=== PATIENT | female | born 1975 | race Two or more races ===

== ENCOUNTER 2020-05-19 19:34 | Inpatient (IN) | payer MEDICAID, OTHER ==
[~2020-05-19] VITALS: Ht 167.6 cm; Wt 99.9 kg
[2020-05-19] MEDS ORDERED: DexAMETHasone SOD PHOS 10MG/1ML VIAL INJ IV ONE (21:45)
[2020-05-19] MEDS ORDERED: DOXYCYCLINE 100MG/250ML 250 ML IV ONE (21:45)
[2020-05-19] MEDS ORDERED: SODIUM CHLORIDE 0.9% 1,000 ML IV ONE (21:45)
[2020-05-19] MEDS ORDERED: ACETAMINOPHEN 500 MG TAB PO ONE (22:45)
[2020-05-19 22:50] LABS: Basophils # (auto) 0 10 ^3/uL (0-0.2); Basophils % (auto) 0.3 % (0.0-2.0); Eosinophils # (auto) 0 10 ^3/uL (0-0.8); Eosinophils % (auto) 0.1 % (0.0-7.0); Hematocrit 43.1 % (36.0-46.0); Hemoglobin 14.3 g/dL (12.2-16.2); Lymphocytes # (auto) 1.5 10 ^3/uL (0.4-5.4); Lymphocytes % (auto) 17.7 % (10.0-50.0); Mean Corpuscular Hemoglobin 29.9 pg (28.0-32.0); Mean Corpuscular Hgb Conc. 33.2 g/dL (32.0-36.0); Mean Corpuscular Volume 90.1 fL (80.0-100.0); Monocytes # (auto) 0.7 10 ^3/uL (0-1.3); Monocytes % (auto) 8.7 % (0.0-12.0); Neutrophils # (auto) 6.2 10 ^3/uL (1.6-8.6); Neutrophils % (auto) 73.2 % (37.0-80.0); Platelet Count (auto) 219 10^3/uL (140-450); Red Blood Cells 4.78 10^6/uL (4.0-5.20); Red Cell Distribution Width 14.7 % (11.8-14.3); White Blood Cell 8.5 10^3/uL (4.4-10.8)
[2020-05-19 23:07] LABS: Albumin 3.2 g/dL (3.4-5.0); Calcium 8.6 mg/dL (8.5-10.1); Potassium 3.9 mmol/L (3.5-5.1)
[2020-05-19 23:10] LABS: Bilirubin, Total 0.6 mg/dL (0.2-1.0); Total Protein 7.8 g/dL (6.4-8.2)
[2020-05-19] MEDS ORDERED: SODIUM CHLORIDE 0.9% 1,000 ML IV SCH (23:24)
[2020-05-19] MEDS ORDERED: ACETAMINOPHEN 325 MG TAB PO PRN (23:30)
[2020-05-19] MEDS ORDERED: LORazepam 0.5 MG TAB PO PRN (23:30)
[2020-05-19] MEDS ORDERED: ONDANSETRON HCL 4 MG/2 ML VIAL IV PRN (23:30)
[2020-05-19] MEDS ORDERED: DOCUSATE SOD 100 MG CAP PO PRN (23:30)
[2020-05-20 00:02] LABS: Urine Bacteria FEW /hpf (None Seen); Urine Blood Negative /uL (Negative); Urine Mucus FEW (None Seen); Urine Specific Gravity 1.022 (1.001-1.035); Urine WBC 13 /hpf (0 - 5)
[2020-05-20] MEDS ORDERED: ENOXAPARIN SOD 40 MG/0.4 ML SYRINGE SC SCH (10:00)
[2020-05-20] MEDS: ZINC SULFATE 220mg CAP or TAB PO SCH (10:47)
[2020-05-20] MEDS: DOXYCYCLINE 100 MG TAB/CAP PO SCH ×2 (10:48→22:34)
[2020-05-20] MEDS: ASCORBIC ACID 1,000 MG TAB PO SCH (10:48)
[2020-05-20] MEDS: ALBUTEROL SULF HFA 90MCG INH 200DOSE IN SCH (13:00)
[2020-05-20 14:55] LABS: Basophils # (auto) 0 10 ^3/uL (0-0.2); Basophils % (auto) 0.1 % (0.0-2.0); Eosinophils # (auto) 0 10 ^3/uL (0-0.8); Hematocrit 41.2 % (36.0-46.0); Hemoglobin 13.4 g/dL (12.2-16.2); Lymphocytes # (auto) 1.2 10 ^3/uL (0.4-5.4); Mean Corpuscular Hemoglobin 29.5 pg (28.0-32.0); Mean Corpuscular Hgb Conc. 32.6 g/dL (32.0-36.0); Mean Corpuscular Volume 90.4 fL (80.0-100.0); Monocytes # (auto) 0.7 10 ^3/uL (0-1.3); Monocytes % (auto) 12.3 % (0.0-12.0); Neutrophils # (auto) 3.5 10 ^3/uL (1.6-8.6); Neutrophils % (auto) 64.6 % (37.0-80.0); Platelet Count (auto) 202 10^3/uL (140-450); Red Blood Cells 4.56 10^6/uL (4.0-5.20); Red Cell Distribution Width 14.8 % (11.8-14.3); White Blood Cell 5.4 10^3/uL (4.4-10.8)
--- NOTE | 2020-05-20 14:55 | NUR ---
Telemetry admit from ER YU MALHOTRA admitted to Telemetry. NO SBAR received. Patient oriented to JULIEN GRANADOS RN primary RN, unit, room, bed, and unit policies regarding patient care and visiting hours. Patient now on continuous telemetry monitoring, tele box # 3 and telemetry reading on arrival to unit is SR. Patient placed on bedside oxygen, weighed by bedscale and encouraged to call if they need something. All questions and concerns addressed, patient verbalized understanding.
[2020-05-20 15:06] LABS: Albumin 2.8 g/dL (3.4-5.0); Calcium 8.7 mg/dL (8.5-10.1); Potassium 4.1 mmol/L (3.5-5.1)
[2020-05-20 15:10] LABS: BUN/Creatinine Ratio 17.2; Bilirubin, Total 0.5 mg/dL (0.2-1.0); Total Protein 7.2 g/dL (6.4-8.2)
[2020-05-20] MEDS ORDERED: FUROSEMIDE 40 MG/4 ML VIAL IV ONE (16:00)
[2020-05-20] MEDS ORDERED: cefTRIAXone 1GM/50ML D5W 50 ML IV ONE (16:00)
[2020-05-20] MEDS ORDERED: CHOLECALCIFEROL (VITD3) 2,000 UNIT CAP PO ONE (16:00)
[2020-05-20 17:39] VITALS: BP 122/67
--- NOTE | 2020-05-20 19:30 | NUR ---
opening note pt is A&Ox4. respirations are even and nonlabored on 3L nc. no s/s of pain or distress at this time. will continue to monitor. POC discussed with pt. pt verbalized understanding. bed in low locked position, call light within reach.
[2020-05-20 22:00] VITALS: BP 115/57
[2020-05-20] MEDS ORDERED: BUDESONIDE (INHALATION) 0.5 MG/2 ML NEB NEB SCH (22:00)
[2020-05-20] MEDS: BUDESONIDE (INHALATION) 180 MCG IH IN SCH (22:27)
[2020-05-20] MEDS: ENOXAPARIN SOD 40 MG/0.4 ML SYRINGE SC SCH (22:36)
[2020-05-21 05:00] VITALS: BP 111/61
--- NOTE | 2020-05-21 05:40 | NUR ---
UA sent to lab
[2020-05-21] MEDS: ALBUTEROL SULF HFA 90MCG INH 200DOSE IN SCH ×4 (06:00→22:27)
[2020-05-21 06:12] LABS: Albumin 2.9 g/dL (3.4-5.0); Calcium 8.6 mg/dL (8.5-10.1); Magnesium 2.2 mg/dL (1.6-2.6); Potassium 4.1 mmol/L (3.5-5.1)
[2020-05-21 06:13] LABS: Basophils # (auto) 0 10 ^3/uL (0-0.2); Basophils % (auto) 0.3 % (0.0-2.0); Eosinophils # (auto) 0 10 ^3/uL (0-0.8); Eosinophils % (auto) 0.3 % (0.0-7.0); Hematocrit 41.5 % (36.0-46.0); Hemoglobin 13.5 g/dL (12.2-16.2); Lymphocytes # (auto) 1.6 10 ^3/uL (0.4-5.4); Lymphocytes % (auto) 23.2 % (10.0-50.0); Mean Corpuscular Hemoglobin 29.3 pg (28.0-32.0); Mean Corpuscular Hgb Conc. 32.5 g/dL (32.0-36.0); Mean Corpuscular Volume 90.2 fL (80.0-100.0); Monocytes # (auto) 0.6 10 ^3/uL (0-1.3); Monocytes % (auto) 8.8 % (0.0-12.0); Neutrophils # (auto) 4.6 10 ^3/uL (1.6-8.6); Neutrophils % (auto) 67.4 % (37.0-80.0); Nucleated Red Blood Cells % 0.1 %; Platelet Count (auto) 214 10^3/uL (140-450); Red Cell Distribution Width 14.7 % (11.8-14.3); White Blood Cell 6.9 10^3/uL (4.4-10.8)
[2020-05-21 06:16] LABS: INR 1.06 (0.9-1.15); Partial Thromboplastin Time 30.4 sec (23.64-32.05)
[2020-05-21 06:21] LABS: BUN/Creatinine Ratio 23.4; Bilirubin, Total 0.4 mg/dL (0.2-1.0); CRP High Sensitivity 1.74 mg/dL (< 0.3); Total Protein 7.3 g/dL (6.4-8.2)
[2020-05-21] MEDS: BUDESONIDE (INHALATION) 180 MCG IH IN SCH ×2 (07:16→22:27)
--- NOTE | 2020-05-21 07:22 | NUR ---
closing note pt resting in semi fowlers with HOB at 30 degrees. respirations even and nonlabored on 3Lnc. O2 saturation is 96%. pt denies discomfort at this time. endorsed care to day shift JENSEN Ocampo.
--- NOTE | 2020-05-21 07:30 | NUR ---
Opening Shift Note Assumed care of patient, awake and alert. No S/S of distress/SOB or pain. Instructed on POC and to call for assist PRN, will continue to monitor for changes Q1hr and PRN.
[2020-05-21 09:00] VITALS: BP 105/55
[2020-05-21] MEDS: cefTRIAXone 1GM/50ML D5W 50 ML IV SCH (09:52)
[2020-05-21] MEDS: CHOLECALCIFEROL (VITD3) 2,000 UNIT CAP PO SCH (09:53)
[2020-05-21] MEDS: DOXYCYCLINE 100 MG TAB/CAP PO SCH ×2 (09:53→21:34)
[2020-05-21] MEDS: ASCORBIC ACID 1,000 MG TAB PO SCH (09:53)
[2020-05-21] MEDS: ZINC SULFATE 220mg CAP or TAB PO SCH (09:53)
[2020-05-21] MEDS: ENOXAPARIN SOD 40 MG/0.4 ML SYRINGE SC SCH ×2 (10:19→21:34)
--- NOTE | 2020-05-21 12:50 | NUR ---
Nutrition consult/assessment Note please see attached link for complete assessment [employer] needs ABW 79 [id number] kcals (20-23 kcal/kgABW). Est Protein needs: 79-86 gms/day (1.0-1.1 gm/kgABW). Will continue to monitor and reassess prn. Addendum: 05/21/20 at [address] Amended: Links added.
[2020-05-21 13:00] VITALS: BP 105/67
[2020-05-21 17:58] VITALS: BP 117/63
[2020-05-21] MEDS: HYDROmorphone HCL 2 MG/ML VL IV PRN (21:35)
[2020-05-21 22:00] VITALS: BP 112/79
[2020-05-22] VITALS (7 sets, daily range): BP systolic 105–115; BP diastolic 58–75
[2020-05-22] MEDS: HYDROmorphone HCL 2 MG/ML VL IV PRN (06:35)
[2020-05-22] MEDS: BUDESONIDE (INHALATION) 180 MCG IH IN SCH (06:52)
[2020-05-22] MEDS: ALBUTEROL SULF HFA 90MCG INH 200DOSE IN SCH ×2 (06:52→14:22)
--- NOTE | 2020-05-22 07:00 | NUR ---
OPENING SHIFT NOTE ASSUMED CARE OF PATIENT FROM [employer] HELP DESK TECHNICIAN JENSEN COLON. PATIENT IS AWAKE, ALERT, AND ORIENTED X4. PATIENT HAS NO S/S OF DISTRESS/SOB OR PAIN. INSTRUCTED PATIENT ON POC, PATIENT VERBALIZED UNDERSTANDING. BED IS IN LOWEST POSITION WITH SIDE RAILS RAISED X2, BED WHEELS LOCKED AND CALL LIGHT IS WITHIN REACH. WILL CONTINUE TO MONITOR.
--- NOTE | 2020-05-22 07:05 | NUR ---
closing note pt resting in right lateral position with eyes closed. respirations even and non labored on 2Lnc PRN. no s/s of painr or distress at this time. bed in low locked position, call light within reach.
[2020-05-22] MEDS: cefTRIAXone 1GM/50ML D5W 50 ML IV SCH (09:32)
[2020-05-22] MEDS: CHOLECALCIFEROL (VITD3) 2,000 UNIT CAP PO SCH (09:33)
[2020-05-22] MEDS: ENOXAPARIN SOD 40 MG/0.4 ML SYRINGE SC SCH (09:33)
[2020-05-22] MEDS: ZINC SULFATE 220mg CAP or TAB PO SCH (09:33)
[2020-05-22] MEDS: ASCORBIC ACID 1,000 MG TAB PO SCH (09:33)
[2020-05-22] MEDS: DOXYCYCLINE 100 MG TAB/CAP PO SCH (09:33)
--- NOTE | 2020-05-22 11:05 | NUR ---
PATIENT AMBULATED IN ROOM AND SPO2 IS 90%. INFORMED MD OAKES. ORDERED ABG AND HOME OXYGEN. WILL FOLLOW THROUGH WITH ORDERS
[2020-05-22] MEDS ORDERED: ALBUAER3 IN (11:43)
[2020-05-22] MEDS ORDERED: DOX100T PO (11:43)
[2020-05-22] MEDS ORDERED: BUDE1AER5 IN (11:43)
[2020-05-22] MEDS ORDERED: ASCO10003 PO (11:43)
[2020-05-22] MEDS ORDERED: ZINC220C10 PO (11:44)
--- NOTE | 2020-05-22 12:30 | NUR ---
SPOKE WITH DR. SÁNCHEZ PER MD, HE SPOKE WITH RT AND PATIENT DOES NOT QUALIFY FOR OXYGEN. PATIENT WILL BE DISCHARGED WITHOUT OXYGEN WILL. FOLLOW THROUGH WITH ORDERS.
== END 2020-05-22 17:40 | disposition home or self-care (01) | DRG 177 ==
LOC: ER 19:34 → TELE 19:35 → TELE-E-ADS 05-20 14:55
PROVIDERS: ADMIT Hospitalist; ATTEND Internal Medicine
DX: U07.1 COVID-19 (principal); J96.00 Acute respiratory failure, unspecified whether with hypoxia or hypercapnia; J12.89 Other viral pneumonia; N30.00 Acute cystitis without hematuria; F32.9 Major depressive disorder, single episode, unspecified; J01.00 Acute maxillary sinusitis, unspecified; Z88.5 Allergy status to narcotic agent
CPT/HCPCS: 36415; 36600; 71045; 80053; 80061; 81001; 82728; 82805; 82962; 83615; 83735; 84443; 85025; 85379; 85610; 85730; 86141; 87070; 87086; 87804; 87880; 94640; G0378; J0696; J1100; J3490

== ENCOUNTER 2023-11-28 11:56 | Inpatient (IN) | payer BC, OTHER ==
[~2023-11-28] VITALS: Ht 162.6 cm; Wt 96.5 kg
[~2023-11-28 11:56] MED LIST: ALBUAER3 IN; ASCO10003 PO; BUDE1AER5 IN; DOX100T PO; ZINC220C10 PO
[2023-11-28] MEDS ORDERED: ONDANSETRON HCL 4 MG/2 ML VIAL IV ONE (12:30)
[2023-11-28] MEDS ORDERED: SODIUM CHLORIDE 0.9% 1,000 ML IVB ONE (12:30)
[2023-11-28 12:52] LABS: Basophils # (auto) 0.1 10 ^3/uL (0-0.2); Basophils % (auto) 0.4 % (0.0-2.0); Eosinophils # (auto) 0 10 ^3/uL (0-0.8); Eosinophils % (auto) 0.2 % (0.0-7.0); Hematocrit 43.1 % (36.0-46.0); Lymphocytes % (auto) 10.1 % (10.0-50.0); Mean Corpuscular Hemoglobin 27.4 pg (28.0-32.0); Mean Corpuscular Hgb Conc. 32.4 g/dL (32.0-36.0); Mean Corpuscular Volume 84.5 fL (80.0-100.0); Monocytes # (auto) 1.1 10 ^3/uL (0-1.3); Monocytes % (auto) 5.8 % (0.0-12.0); Neutrophils # (auto) 16.3 10 ^3/uL (1.6-8.6); Neutrophils % (auto) 83.5 % (37.0-80.0); Red Cell Distribution Width 15.3 % (11.8-14.3); White Blood Cell 19.6 10^3/uL (4.4-10.8)
[2023-11-28 13:07] LABS: Alanine Aminotransferase 28 U/L (7-40); Albumin 4.1 g/dL (3.2-4.8); Alkaline Phosphatase 72 U/L (46-116); Anion Gap 5 (5-15); Aspartate Aminotransferase 27 U/L (13-40); BUN/Creatinine Ratio 16.7 (10.0-20.0); Blood Urea Nitrogen 12 mg/dL (9-23); Calcium 8.9 mg/dL (8.7-10.4); Carbon Dioxide 29 mmol/L (20-30); Chloride 103 mmol/L (98-107); Glucose 121 mg/dL (74-106); Lipase 33 U/L (12-53); Magnesium 1.9 mg/dL (1.6-2.6); Potassium 4.4 mmol/L (3.5-5.1); Sodium 137 mmol/L (136-145)
[2023-11-28 13:08] LABS: Bilirubin, Total 1.4 mg/dL (0.2-1.0); Total Protein 6.9 g/dL (5.7-8.2)
[2023-11-28] MEDS ORDERED: IOHEXOL 300 MG/ML 100ML BOTTLE IJ ONE (13:34)
[2023-11-28] MEDS ORDERED: OMNIPAQUE 12mg/ml 500ml ORAL SOLUTION PO ONE (13:34)
[2023-11-28 14:46] LABS: Urine Bacteria FEW /hpf (None Seen); Urine Blood TRACE /uL (Negative); Urine Clarity HAZY (Clear); Urine Color Yellow (Yellow); Urine Mucus FEW (None Seen); Urine Protein, UAD 1+ (Negative); Urine Specific Gravity 1.014 (1.001-1.035); Urine Urobilinogen Normal (Negative); Urine WBC 26 /hpf (0 - 5); Urine pH 6.5 (5.0-8.0)
[2023-11-28] MEDS ORDERED: CIPROFLOXACIN 400MG/200ML 200 ML IV ONE (17:00)
[2023-11-28] MEDS ORDERED: metroNIDAZOLE 500MG/100ML 100 ML IV ONE (17:00)
[2023-11-28] MEDS ORDERED: DOCUSATE SOD 100 MG CAP PO PRN (19:00)
[2023-11-28] MEDS ORDERED: SODIUM CHLORIDE 0.9% 1,000 ML IV ONE (19:30)
[2023-11-28] MEDS: SODIUM CHLORIDE 0.9% 1,000 ML IV SCH (20:21)
[2023-11-28] MEDS: CIPROFLOXACIN 400MG/200ML 200 ML IV SCH (22:00)
[2023-11-28] MEDS: metroNIDAZOLE 500MG/100ML 100 ML IV SCH (22:20)
[2023-11-28 23:05] VITALS: PULSE 67; RESP 14; O2SAT 100
[2023-11-29] MEDS ORDERED: SODIUM CHLORIDE 0.9% 500 ML IV ONE ×2 (01:00→03:45)
[2023-11-29] MEDS: SODIUM CHLORIDE 0.9% 1,000 ML IV SCH ×3 (03:20→20:00)
[2023-11-29 05:02] LABS: Basophils # (auto) 0 10 ^3/uL (0-0.2); Eosinophils # (auto) 0.1 10 ^3/uL (0-0.8); Eosinophils % (auto) 0.9 % (0.0-7.0); Lymphocytes # (auto) 2.1 10 ^3/uL (0.4-5.4); Monocytes # (auto) 0.8 10 ^3/uL (0-1.3)
[2023-11-29 05:04] LABS: Basophils % (auto) 0.2 % (0.0-2.0); Hematocrit 33.2 % (36.0-46.0); Hemoglobin 10.8 g/dL (12.2-16.2); Mean Corpuscular Hemoglobin 27.3 pg (28.0-32.0); Mean Corpuscular Hgb Conc. 32.6 g/dL (32.0-36.0); Mean Corpuscular Volume 83.7 fL (80.0-100.0); Monocytes % (auto) 7.1 % (0.0-12.0); Neutrophils # (auto) 8.4 10 ^3/uL (1.6-8.6); Neutrophils % (auto) 73.8 % (37.0-80.0); Red Blood Cells 3.96 10^6/uL (4.0-5.20); Red Cell Distribution Width 15.5 % (11.8-14.3); White Blood Cell 11.4 10^3/uL (4.4-10.8)
[2023-11-29 05:19] LABS: Alanine Aminotransferase 20 U/L (7-40); Albumin 3.1 g/dL (3.2-4.8); Alkaline Phosphatase 52 U/L (46-116); Anion Gap 5 (5-15); Aspartate Aminotransferase 19 U/L (13-40); BUN/Creatinine Ratio 11.3 (10.0-20.0); Bilirubin, Total 1.2 mg/dL (0.2-1.0); Blood Urea Nitrogen 7 mg/dL (9-23); Calcium 7.2 mg/dL (8.7-10.4); Carbon Dioxide 27 mmol/L (20-30); Chloride 109 mmol/L (98-107); Glucose 110 mg/dL (74-106); Potassium 3.6 mmol/L (3.5-5.1); Sodium 141 mmol/L (136-145); Total Protein 5.4 g/dL (5.7-8.2)
[2023-11-29] MEDS ORDERED: NOREPINEPHRINE 8 MG/250ML KIT 250 ML IV SCH (05:30)
[2023-11-29] MEDS: metroNIDAZOLE 500MG/100ML 100 ML IV SCH ×3 (06:12→22:41)
[2023-11-29 08:11] VITALS: PULSE 55; RESP 18; O2SAT 98
[2023-11-29] MEDS: CIPROFLOXACIN 400MG/200ML 200 ML IV SCH ×2 (11:04→23:49)
[2023-11-29] MEDS: PANTOPRAZOLE 40 MG/10 ML VIAL INJ IV SCH (11:04)
[2023-11-29] MEDS: ONDANSETRON HCL 4 MG/2 ML VIAL IV PRN ×2 (11:22→23:25)
[2023-11-29] MEDS: HYDROmorphone HCL 2 MG/ML VL/or syr IV PRN ×2 (11:23→21:50)
[2023-11-29] MEDS ORDERED: CALCIUM GLUC 1,000mg/50ml-NS 50 ML IV ONE (15:45)
[2023-11-29] MEDS ORDERED: ALBUMIN 5% 250 ML IV ONE (15:45)
[2023-11-29 19:30] VITALS: PULSE 59; RESP 16; O2SAT 100
[2023-11-29 22:10] VITALS: O2SAT 99
[2023-11-29 22:43] VITALS: BP 124/58; PULSE 54; RESP 18; TEMP 98; O2SAT 95
[2023-11-30] VITALS (7 sets, daily range): BP systolic 107–129; BP diastolic 56–73; PULSE 46–78; RESP 17–20; TEMP 96.9–98.1; O2SAT 94–97
[2023-11-30] MEDS: ACETAMINOPHEN 325 MG TAB PO PRN ×3 (00:01→22:41)
[2023-11-30] MEDS ORDERED: OMEP1CAP70 PO (00:21)
[2023-11-30] MEDS: SODIUM CHLORIDE 0.9% 1,000 ML IV SCH ×3 (04:42→21:00)
[2023-11-30] MEDS: metroNIDAZOLE 500MG/100ML 100 ML IV SCH ×3 (06:05→22:35)
[2023-11-30 11:42] LABS: Basophils # (auto) 0 10 ^3/uL (0-0.2); Eosinophils # (auto) 0.1 10 ^3/uL (0-0.8); Hemoglobin 10.1 g/dL (12.2-16.2); Monocytes # (auto) 0.6 10 ^3/uL (0-1.3)
[2023-11-30 11:43] LABS: Basophils % (auto) 0.3 % (0.0-2.0); Eosinophils % (auto) 1.2 % (0.0-7.0); Hematocrit 30.9 % (36.0-46.0); Lymphocytes % (auto) 21.8 % (10.0-50.0); Mean Corpuscular Hemoglobin 27.6 pg (28.0-32.0); Mean Corpuscular Hgb Conc. 32.6 g/dL (32.0-36.0); Mean Corpuscular Volume 84.8 fL (80.0-100.0); Monocytes % (auto) 6.4 % (0.0-12.0); Neutrophils # (auto) 6.6 10 ^3/uL (1.6-8.6); Neutrophils % (auto) 70.3 % (37.0-80.0); Red Blood Cells 3.65 10^6/uL (4.0-5.20); White Blood Cell 9.3 10^3/uL (4.4-10.8)
[2023-11-30 11:45] LABS: Chloride 108 mmol/L (98-107); Potassium 3.2 mmol/L (3.5-5.1); Sodium 141 mmol/L (136-145)
[2023-11-30 11:46] LABS: Anion Gap 7 (5-15); Calcium 7.8 mg/dL (8.5-10.1); Carbon Dioxide 26 mmol/L (20-30)
[2023-11-30 11:51] LABS: BUN/Creatinine Ratio 10.5 (10.0-20.0); Blood Urea Nitrogen 6 mg/dL (9-23); Glucose 109 mg/dL (74-106)
[2023-11-30] MEDS: CIPROFLOXACIN 400MG/200ML 200 ML IV SCH ×2 (12:47→23:53)
[2023-11-30] MEDS: PANTOPRAZOLE 40 MG/10 ML VIAL INJ IV SCH (12:47)
[2023-12-01 05:00] VITALS: BP 112/61; PULSE 60; RESP 17; TEMP 97.5; O2SAT 94
[2023-12-01] MEDS: metroNIDAZOLE 500MG/100ML 100 ML IV SCH (05:41)
[2023-12-01] MEDS: SODIUM CHLORIDE 0.9% 1,000 ML IV SCH (05:42)
[2023-12-01 08:00] VITALS: PULSE 45
[2023-12-01 08:48] LABS: Hepatitis B Surface Antigen Negative (Negative)
[2023-12-01 09:00] VITALS: BP 82/49; PULSE 94; RESP 20; TEMP 98.3; O2SAT 97
[2023-12-01 09:09] LABS: Hepatitis C Antibody Negative (Negative)
[2023-12-01] MEDS ORDERED: LEVO500T91 PO (10:21)
[2023-12-01] MEDS ORDERED: METR-344 PO (10:21)
[2023-12-01 12:19] VITALS: TEMP 36.8
[2023-12-02] MEDS ORDERED: cefTRIAXone 1GM/50ML D5W 50 ML IV SCH (09:00)
== END 2023-12-01 13:30 | disposition home or self-care (01) | DRG 690 ==
LOC: ER 11:56 → EDBD 11:56 → OVERFLOW 19:08 → CENTRAL 11-29 19:08
PROVIDERS: ADMIT Nurse Practitioner Family; ATTEND Internal Medicine
DX: N30.00 Acute cystitis without hematuria (principal); K52.9 Noninfective gastroenteritis and colitis, unspecified; D69.6 Thrombocytopenia, unspecified; B96.20 Unspecified Escherichia coli [E. coli] as the cause of diseases classified elsewhere; F32.A Depression, unspecified; K76.0 Fatty (change of) liver, not elsewhere classified; E27.8 Other specified disorders of adrenal gland; Z98.84 Bariatric surgery status; Z88.5 Allergy status to narcotic agent
CPT/HCPCS: 36415; 74177; 76856; 80048; 80053; 81001; 82962; 83605; 83690; 83735; 84702; 85025; 86803; 87086; 87088; 87186; 87340; C9113; G0378; J2405; J3490